=== PATIENT | male | born 1970 | race Caucasian/White ===

== ENCOUNTER 2020-06-23 08:50 | Emergency (ER) | payer OTHER ==
[~2020-06-23] VITALS: Ht 188 cm; Wt 117.7 kg
[2020-06-23 08:56] VITALS: BP 153/80; TEMP 97.1
[2020-06-23] MEDS ORDERED: FLEXERIL 1010 MG/TAB PO (09:38)
[2020-06-23] MEDS ORDERED: NORCO 325 MG-7.1 TAB PO (09:38)
[2020-06-23 10:00] VITALS: PULSE 65
[2020-06-23] MEDS ORDERED: ZOFRAN ODT4 MG PO (10:00)
== END 2020-06-23 10:00 | disposition home or self-care (01) ==
LOC: COL.ER 08:50
DX: M54.5 Low back pain (principal); Z87.442 Personal history of urinary calculi; W19.XXXA Unspecified fall, initial encounter
CPT/HCPCS: J1885; J2360

== ENCOUNTER 2022-03-15 13:57 | Emergency (ER) | payer BC ==
[~2022-03-15] VITALS: Ht 188 cm; Wt 121.8 kg
[~2022-03-15 13:57] MED LIST: FLEXERIL 1010 MG/TAB PO; NORCO 325 MG-7.1 TAB PO; ZOFRAN ODT4 MG PO
[2022-03-15 14:06] VITALS: TEMP 97.1
[2022-03-15 14:52] LABS: BASO # 0.1 K/mm3 (0.0-0.2); BASO % 0.9 % (0.0-2.0); EOS # 0.5 K/mm3 (0.0-0.7); EOS % 5.7 % (0.0-4.0); GRAN # 4.3 K/mm3 (1.4-6.5); GRAN % 45.7 % (42.2-75.2); HEMATOCRIT 50.1 % (42.0-52.0); HEMOGLOBIN 17.7 g/dl (13.5-18.0); LYMPH # 3.5 K/mm3 (1.2-3.4); LYMPH % 37.3 % (20.0-51.0); MEAN CELL VOLUME 88 fl (80.0-100.0); MEAN CORPUSCULAR HEMOGLOBIN 31 pg (27-31); MEAN CORPUSCULAR HGB CONC 35 g/dl (33.0-37.0); MEAN PLATELET VOLUME 12.4 fl (7.4-10.4); MONO # 0.9 K/mm3 (0.1-0.6); MONO % 9.9 % (1.7-9.3); PLATELET COUNT 161 K/mm3 (130-400); RED BLOOD COUNT 5.69 M/mm3 (4.20-5.60)
[2022-03-15 15:09] LABS: ALBUMIN 4.5 gm/dL (3.5-5.0); BILIRUBIN,TOTAL 0.7 mg/dL (0.2-1.2); CALCIUM 9.1 mg/dL (8.4-10.2); CREATININE, serum 0.92 mg/dL (0.72-1.25); POTASSIUM 3.7 mmol/L (3.5-4.5); TOTAL PROTEIN 8.6 gm/dL (6.2-8.1)
[2022-03-15 15:27] LABS: PROTHROMBIN TIME 11.3 SECONDS (9.7-12.8)
[2022-03-15 15:28] LABS: TROPONIN-I 0.01 ng/mL (0.00-0.033); TSH w REFLEX 1.408 uIU/mL (0.350-4.940)
[2022-03-15 15:29] LABS: PARTIAL THROMBOPLASTIN TIME 35.4 SECONDS (26.0-37.0)
[2022-03-15 15:56] VITALS: BP 168/98; PULSE 88
== END 2022-03-15 16:00 | disposition short-term general hospital (02) ==
LOC: COL.ER 13:57
PROVIDERS: Emergency Medicine
DX: I21.3 ST elevation (STEMI) myocardial infarction of unspecified site (principal); I47.1 Supraventricular tachycardia; E66.9 Obesity, unspecified; Z20.822 Contact with and (suspected) exposure to COVID-19; Z28.311 Partially vaccinated for COVID-19
CPT/HCPCS: J0153; J1644; J3101

== ENCOUNTER 2022-08-27 14:31 | Emergency (ER) | payer BC ==
[~2022-08-27] VITALS: Ht 188 cm; Wt 126.4 kg
[2022-08-27 14:41] VITALS: BP 150/82; TEMP 97.2
[2022-08-27 16:15] VITALS: PULSE 86
== END 2022-08-27 16:15 | disposition home or self-care (01) ==
LOC: COL.ER 14:31
DX: S61.311A Laceration without foreign body of left index finger with damage to nail, initial encounter (principal); Z79.02 Long term (current) use of antithrombotics/antiplatelets; Z79.01 Long term (current) use of anticoagulants; W26.0XXA Contact with knife, initial encounter

== ENCOUNTER 2022-12-21 19:21 | Emergency (ER) | payer BC ==
[~2022-12-21] VITALS: Ht 188 cm; Wt 120.0 kg
[2022-12-21 19:26] VITALS: TEMP 97.3
[2022-12-21 20:01] LABS: BASO # 0.1 K/mm3 (0.0-0.2); BASO % 0.9 % (0.0-2.0); EOS # 0.7 K/mm3 (0.0-0.7); EOS % 8.9 % (0.0-4.0); GRAN # 3.3 K/mm3 (1.4-6.5); GRAN % 43.5 % (42.2-75.2); HEMOGLOBIN 16.5 g/dl (13.5-18.0); LYMPH # 2.8 K/mm3 (1.2-3.4); LYMPH % 37.1 % (20.0-51.0); MEAN CELL VOLUME 87 fl (80.0-100.0); MEAN CORPUSCULAR HEMOGLOBIN 31 pg (27-31); MEAN CORPUSCULAR HGB CONC 35 g/dl (33.0-37.0); MEAN PLATELET VOLUME 12.1 fl (7.4-10.4); MONO # 0.7 K/mm3 (0.1-0.6); MONO % 9.1 % (1.7-9.3); PLATELET COUNT 152 K/mm3 (130-400); RED BLOOD COUNT 5.39 M/mm3 (4.20-5.60); REDCELL DISTRIBUTION WIDTH-CV 12.8 % (11.5-14.5)
[2022-12-21 20:11] LABS: ALANINE AMINOTRANSFERASE 43 U/L (0-55); ALBUMIN 4.1 gm/dL (3.5-5.0); ALKALINE PHOSPHATASE 93 U/L (40-150); ANION GAP 10 mmol/L (7-16); AST,SGOT 34 U/L (5-34); BILIRUBIN,TOTAL 0.7 mg/dL (0.2-1.2); BLOOD UREA NITROGEN 13 mg/dL (8-26); CALCIUM 9.5 mg/dL (8.4-10.2); CARBON DIOXIDE 25 mmol/L (22-29); CHLORIDE 107 mmol/L (98-107); CREATININE, serum 0.93 mg/dL (0.72-1.25); GLUCOSE 139 mg/dL (70-99); POTASSIUM 3.5 mmol/L (3.5-4.5); SODIUM 142 mmol/L (136-145); TOTAL PROTEIN 7.5 gm/dL (6.2-8.1)
[2022-12-21 20:28] LABS: TROPONIN-I < 0.010 ng/mL (0.00-0.033)
[2022-12-21] MEDS ORDERED: ZITHROMAX Z PA250 MG PO (22:48)
[2022-12-21 23:01] VITALS: BP 119/69; PULSE 67
[2022-12-21] MEDS ORDERED: TUSS PO (23:05)
== END 2022-12-21 23:01 | disposition home or self-care (01) ==
LOC: COL.ER 19:21
PROVIDERS: Personal Emergency Response Attendant
DX: J40 Bronchitis, not specified as acute or chronic (principal); Z28.311 Partially vaccinated for COVID-19; Z20.822 Contact with and (suspected) exposure to COVID-19
CPT/HCPCS: J0696; J7030